=== PATIENT | male | born 2005 | race Two or more races ===

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

== ENCOUNTER 2023-01-31 23:12 | Emergency (ER) | payer OTHER, SELFPAY ==
--- NOTE | ~2023-01-31 | XR_ITS ---
EXAMINATION: XR KNEE, LEFT CLINICAL INFORMATION: Acute on chronic left knee pain COMPARISON: 01/07/2021 TECHNIQUE: Four views of the left knee. FINDINGS: Osseous alignment is anatomic. Joint spaces are maintained. There is a suspected small bone island in the proximal tibia. No acute fracture is seen. No significant joint effusion. XR/XR knee LT 4V IMPRESSION: No acute findings identified.
[2023-01-31 23:23] VITALS: BP 152/90; PULSE 103; O2SAT 98
[2023-01-31 23:28] VITALS: BP 121/78; PULSE 100; RESP 19; TEMP 37.1; O2SAT 96; BMI 22.8
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
[2023-02-01] MEDS: Acetaminophen 325 MG TABLET 975 MG PO (00:25)
== END 2023-02-01 00:42 | disposition home or self-care (01) ==
PROVIDERS: Emergency Provider Emergency Medicine; PCP Pediatrics
DX: Z04.1 Encounter for examination and observation following transport accident (principal); M25.562 Pain in left knee
CPT/HCPCS: 73564; 99283; 99284